=== PATIENT | female | born 1995 | race Caucasian/White ===

== ENCOUNTER 2016-07-30 14:16 | Emergency (ER) | payer OTHER ==
[~2016-07-30 14:16] MED LIST: ACET50TA PO; DIBU1OIN TOP; FERR325T3 PO; IBUP80TA PO; PRENTAB55 PO
[2016-07-30 18:30] LABS: MEAN CORPUSCULAR HEMOGLOBIN 29.4 pg (27.0-33.0); MEAN CORPUSCULAR HGB CONC 34.8 g/dl (32.0-36.5); MEAN CORPUSCULAR VOLUME 84.7 fl (80.0-96.0); RED CELL DISTRIBUTION WIDTH 12.6 % (11.5-14.5); WHITE BLOOD COUNT 9.4 K/mm3 (4.0-10.0)
--- NOTE | 2016-07-30 20:30 | EDDOCDS ---
Nurse's Notes [facility] Name: Mellissa Zavala Age: 20 yrs Sex: Female : 1995 Arrival Date: 07/30/2016 Time: 14:16 Bed I1 / M1 Private MD: EVELIN Su Diagnosis: Threatened ;Acute vaginitis-BACTERIAL VAGINOSIS Presentation: 07/30 14:35 Presenting complaint: Patient states: she has had vaginal bleeding and cramps since kcs 0800 - thinks she is about 4 weeks . Risk factors: The patient reports no loss of conciousness prior to arrival. This patient has not had a hysterectomy. This patient has not begun menopause. Adult Sepsis Screening: The patient does not have new or worsening altered mentation. Patient's respiratory rate is less than 22. Systolic blood pressure is greater than 100. Patient has a qSOFA score of 0- Negative Sepsis Screen. Suicide/Homicide risk assessment- the patient denies having any suicidal and/or homicidal ideations and does not present with any other emotional, behavioral or mental health complaints. Status: The patient is a dependent. Transition of care: patient was not received from another setting of care. 14:35 Acuity: ARON Level 3 kcs 14:35 Method Of Arrival: Walkin/Carried/Asstd [facility] Triage Assessment: 14:37 General: Appears comfortable, well developed, well nourished, well groomed, Behavior is kcs cooperative, pleasant. Pain: Location: low back and lower abdomen Pain currently is 7 out of 10 on a pain scale. Pt Declines HIV testing. Neurological: Level of Consciousness is awake, alert. Respiratory: Airway is patent Respiratory effort is even, unlabored, Respiratory pattern is regular, symmetrical. : Reports vaginal bleeding that is started brown and is now alittle more red. Derm: Skin is intact, is healthy with good turgor, Skin is dry, Skin is normal. 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 none - PMHx: none; - PSHx: none; - Social history: Smoking status: Patient states was never smoker of tobacco. No barriers to communication noted, The patient speaks fluent Welsh. - Family history: Not pertinent. - : The pt / caregiver states he / she is not on anticoagulants. Home medication list is obtained from the patient. - Exposure Risk Screening:: None identified. Screenin:11 Screening information is obtained from the patient. Fall risk: No risks identified. mk4 Assistance ADL's: requires no assistance with activities of daily living. Abuse/DV Screen: The patient / caregiver reports he/she is: not in a situation that causes fear, pain or injury. Nutritional screening: No deficits noted. Advance Directives: Currently, there is no health care proxy. There is no active DNR order. There is no living will. There is no Power of Laborer Driver. Advance directive information has not previously been placed in an [facility] medical record. Further advance directive information is declined. home support is adequate. Assessment: 16:45 General: At this time this pt called lab to come and draw labs on pt. . mb9 18:00 General: first contact with pt, [place] [facility] [place] and to my care at this time. mk4 19:14 General: Appears in no apparent distress, Behavior is appropriate for age, cooperative. dsf Pain: Denies pain. Neurological: Level of Consciousness is awake, alert, Oriented to person, place, time. Cardiovascular: Capillary refill < 3 seconds Heart tones S1 S2 present. Respiratory: Airway is patent Respiratory effort is even, unlabored, Respiratory pattern is regular, symmetrical, Breath sounds are clear bilaterally. GI: Abdomen is flat, Bowel sounds present X 4 quads. Abd is soft and non tender X 4 quads. : Vaginal discharge is tanya blood. Derm: Skin is pink, warm & dry. 20:28 Adult Sepsis Screening: The patient does not have new or worsening altered mentation. dsf Patient's respiratory rate is less than 22. Systolic blood pressure is greater than 100. Patient has a qSOFA score of 0- Negative Sepsis Screen. General: Appears in no apparent distress, Behavior is appropriate for age, cooperative. Pain: Denies pain. Neurological: Level of Consciousness is awake, alert. Cardiovascular: Capillary refill < 3 seconds. Respiratory: Airway is patent Respiratory effort is even, unlabored, Respiratory pattern is regular, symmetrical. Derm: Skin is pink, warm & dry. Vital Signs: 14:19 BP 143 / 82; Pulse 87; Resp 16; Temp 99.4(O); Pulse Ox 100% ; Weight 72.57 kg; Height 5 cmb ft. 5 in. (165.10 cm); Pain 7/10; 19:39 BP 151 / 83; Pulse 78; Resp 18; Temp 98.2; Pulse Ox 98% ; Pain 0/10; ajs 14:19 Body Mass Index 26.63 (72.57 kg, 165.10 cm) cmb Vitals: 14:19 Log In Time: July 30, 2016 at 14:15. cmb ED Course: 14:18 Patient visited by Lela Porras. cmb 14:18 Patient moved to Waiting cmb 14:19 Georges [facility] [place] is Private Physician. cmb 14:20 Patient moved to Pre RCE cmb 14:36 Triage Initiated kcs 15:18 Patient moved to Triage 1 ar3 15:22 [facility] ck7 15:23 Tessa Mead MD is Attending Physician. ck7 15:23 Patient visited by Jamshid Pierre RPA-C. ck7 15:51 Patient moved to PR1 / 25 mb9 15:56 Patient visited by Jamshid Pierre RPA-C. ck7 16:23 [facility] Payment Agreement was scanned into [employer] and attached to record. ks16 16:29 Patient visited by Jamshid Pierre RPA-C. ck7 16:32 Patient moved to Ultrasound br3 17:03 Patient moved to PR1 / 25 br3 17:30 Patient visited by Jamshid Pierre RPA-C. ck7 18:04 Patient moved to I1 / M1 mb9 18:11 The patient / caregiver is instructed regarding the plan of care and ED course. mk4 18:14 Patient visited by Jamshid Pierre RPA-C. ck7 18:47 Patient visited by Jamshid Pierre RPA-C. ck7 19:14 Wet Prep Sent. dsf 19:14 GC & Chlamydia Amplification Sent. dsf 19:15 Assist provider with pelvic exam: Set up pelvic tray. Specimens sent to lab. Performed dsf by Jamshid GONZALES Patient tolerated well. 19:24 Patient visited by Jamshid Pierre RPA-C. ck7 19:39 Patient visited by Ora Baig. ajs 20:22 Patient visited by Jamshid Pierre RPA-C. ck7 20:22 Amber Lizama MD is Referral Physician. ck7 20:28 No IV's were initiated during this patient's visit. dsf Administered Medications: 18:46 Not Given (no iv): NS 0.9% 1000 ml IV at bolus once mk4 Order Results: Lab Order: Type & Screen; [facility]07/30/16 18:02 Test: BLOOD TYPE; Value: O POS; Status: F Test: AB SCREEN (INDIRECT CARLITA)GEL; Value: NEGATIVE; Status: F Lab Order: Hcg, Serum Quantitative; [facility]07/30/16 18:02 Test: HCG, SERUM QUANTITATIVE; Value: 5; Units: MIU/ML; Status: F Test Note: ; GESTATIONAL AGE APPROXIMATE HCG RANGE (MIU/ML) 0.2-1 WEEK 5-50 1-2 WEEKS 50-500 2-3 WEEKS 100-5,000 3-4 WEEKS 500-10,000 4-5 WEEKS 1,000-50,000 5-6 WEEKS 10,000-100,000 6-8 WEEKS 15,000-200,000 2-3 MONTHS 10,000-100,000 NON FEMALES LESS THAN 3.0 Patient samples may contain human heterophilic antibodies that could react with immunoassays to give falsely elevated or depressed results. This assay has been designed to minimize interference from heterophilic antibodies. Elevated hCG levels have also been associated with trophoblastic disease and nontrophoblastic neoplasms. The possibility of having these diseases should be considered before a diagnosis of is made. This test is not intended for use as a surrogate marker for aiding in the diagnosis or monitoring the treatment of cancer patients. Siemens SQMOS methodology. Lab Order: CBC; [facility]07/30/16 18:02 Test: WHITE BLOOD COUNT; Value: 9.4; Range: 4.0-10.0; Units: K/mm3; Status: F Test: RED BLOOD COUNT; Value: 4.54; Range: 4.00-5.40; Units: M/mm3; Status: F Test: HEMOGLOBIN; Value: 13.4; Range: 12.0-16.0; Units: g/dl; Status: F Test: HEMATOCRIT; Value: 38.4; Range: 36.0-47.0; Units: %; Status: F Test: MEAN CORPUSCULAR VOLUME; Value: 84.7; Range: 80.0-96.0; Units: fl; Status: F Test: MEAN CORPUSCULAR HEMOGLOBIN; Value: 29.4; Range: 27.0-33.0; Units: pg; Status: F Test: MEAN CORPUSCULAR HGB CONC; Value: 34.8; Range: 32.0-36.5; Units: g/dl; Status: F Test: RED CELL DISTRIBUTION WIDTH; Value: 12.6; Range: 11.5-14.5; Units: %; Status: F Test: PLATELET COUNT, AUTOMATED; Value: 256; Range: 150-450; Units: k/mm3; Status: F Lab Order: UA; SPEC'M 07/30/16 17:21 Test: APPEARANCE, URINE; Value: CLEAR; Range: CLEAR; Status: F Test: COLOR, URINE; Value: YELLOW; Range: YELLOW; Status: F Test: PH,URINE; Value: 5.0; Range: 5.0-9.0; Units: UNITS; Status: F Test: SPECIFIC GRAVITY URINE AUTO; Value: 1.013; Range: 1.002-1.035; Status: F Test: PROTEIN, URINE AUTO; Value: NEGATIVE; Range: NEGATIVE; Units: mg/dL; Status: F Test: GLUCOSE, URINE (UA) AUTO; Value: NEGATIVE; Range: NEGATIVE; Units: mg/dL; Status: F Test: KETONE, URINE AUTO; Value: NEGATIVE; Range: NEGATIVE; Units: mg/dL; Status: F Test: UROBILINOGEN, URINE AUTO; Value: 0.2; Range: 0.0-2.0; Units: mg/dL; Status: F Test: BILIRUBIN, URINE AUTO; Value: NEGATIVE; Range: NEGATIVE; Status: F Test: NITRITE, URINE AUTO; Value: NEGATIVE; Range: NEGATIVE; Status: F Test: LEUKOCYTE ESTERASE, URINE AUTO; Value: NEGATIVE; Range: NEGATIVE; Status: F Test: BLOOD, URINE BLOOD; Value: 3+; Range: NEGATIVE; Abnormal: Above high normal; Status: F Test: WBC, URINE AUTO; Value: 7; Range: 0-3; Abnormal: Above high normal; Units: /HPF; Status: F Test: RBC, URINE AUTO; Value: 60; Range: 0-3; Abnormal: Above high normal; Units: /HPF; Status: F Test: BACTERIA, URINE AUTO; Value: NEGATIVE; Range: NEGATIVE; Status: F Test: SQUAMOUS EPITHELIAL CELL UR AU; Value: 2; Range: 0-6; Units: /HPF; Status: F Test: MUCUS, URINE; Value: SMALL; Range: NEGATIVE; Status: F Test: HYALINE CAST, URINE AUTO; Value: 0; Range: 0-1; Units: /LPF; Status: F Lab Order: Wet Prep; SPEC'[facility] 07/30/16 19:13 Test: WET PREP; Value: WET PREP RESULT; Status: F Test: WET PREP; Value: MANY RBC; Status: F Test: WET PREP; Value: FEW WBC; Status: F Test: WET PREP; Value: FEW EPITHELIAL CELLS PRESENT; Status: F Test: WET PREP; Value: FEW CLUE CELLS PRESENT; Status: F Test: WET PREP; Value: MODERATE SHORT RODS PRESENT; Status: F Test: WET PREP; Value: FEW LONG RODS PRESENT; Status: F Outcome: 20:24 Discharge ordered by Provider. ck7 20:28 Discharge Assessment: Patient awake, alert and oriented x 3. No cognitive and/or dsf functional deficits noted. Patient verbalized understanding of disposition instructions. patient administered narcotics - no. The following High Risk Discharge criteria are identified: None. Discharged to home ambulatory, with significant other. Condition: stable. Discharge instructions given to patient, Instructed on discharge instructions, follow up and referral plans. medication usage, Demonstrated understanding of instructions, medications, Pt was receptive of discharge instructions/ teaching. Prescriptions given X 1. Ultrasound Study completed. Property sent home with patient. 20:29 Patient left the ED. dsf Signatures: Natalie Bernardo, RN RN Sharee Theodore br3 Renetta Wright, FOOD PROCESSING SCIENTIST FOOD PROCESSING SCIENTIST ar3 Lisa De Luna RN RN dsf Ora Baig [place] cmb Jamshid Pierre, RPA-C RPA-Cck7 Geovanna Price RN RN mk4 Kal Foley RN RN mb9 Shanika Hernández, Reg Reg ks16 Corrections: (The following items were deleted from the chart) 18:11 18:06 General: at this time this rn called lab again to come and draw pt. . mb9 mk4 MTDD
--- NOTE | 2016-07-30 20:30 | EDDOCDS ---
Physician Documentation [facility] Name: Mellissa Zavala Age: 20 yrs Sex: Female : 1995 Arrival Date: 07/30/2016 Time: 14:16 Bed I1 / M1 Private MD: Georges [facility] [place]position: 07/30/16 20:24 Discharged to Home/Self Care. Impression: Threatened , Acute vaginitis - BACTERIAL VAGINOSIS. - Condition is Stable. - Discharge Instructions: Threatened Miscarriage, Bacterial Vaginosis, Giyd-of-Ijkt, Pelvic Rest. - Prescriptions for Metronidazole 0.75 % Vaginal Gel - insert 37.5 milligram by VAGINAL route once daily As needed in the morning and evening; 1 tube. STAT QUANT HCG ON 08/01/15, RESULTS TO DR EL. - Medication Reconciliation, Local Pharmacy Hours form. - Follow up: Amber El MD; When: 2 - 3 days; Reason: Recheck today's complaints, Continuance of care. - Problem is new. - Symptoms have improved. - Notes: IF BLEEDING MORE THAN 1 PAD PER HOUR, OR SIGNIFICANTLY MORE PAINFUL, RETURN TO THE ER, OBTAIN LAB WORK ON 08/01/15 AT [facility], FOLLOW UP WITH DR EL AT [facility] Historical: - Allergies: Bactrim (Rash); - Home Meds: 1. none - PMHx: none; - PSHx: none; - Social history: Smoking status: Patient states was never smoker of tobacco. No barriers to communication noted, The patient speaks fluent Serbian. - Family history: Not pertinent. - : The pt / caregiver states he / she is not on anticoagulants. Home medication list is obtained from the patient. - Exposure Risk Screening:: None identified. SCIENTIFIC DIVER: 07/30 14:37 2, Full Term 1, Premature 0, 0, Living 0, LMP 06/28/2016 kcs Vital Signs: 14:19 BP 143 / 82; Pulse 87; Resp 16; Temp 99.4(O); Pulse Ox 100% ; Weight 72.57 kg / 159.99 cmb lbs; Height 5 ft. 5 in. (165.10 cm); Pain 7/10; 19:39 BP 151 / 83; Pulse 78; Resp 18; Temp 98.2; Pulse Ox 98% ; Pain 0/10; ajs 14:19 Body Mass Index 26.63 (72.57 kg, 165.10 cm) cmb MDM: 15:12 Type & Screen Ordered. EDMS 15:12 Hcg, Serum Quantitative Ordered. EDMS 15:12 CBC Ordered. EDMS 15:27 NS 0.9% 1000 ml IV at bolus once ordered. ck7 15:27 Set up pelvic ordered. ck7 15:29 UA Ordered. EDMS 15:29 Urine Culture Ordered. EDMS 15:29 GC & Chlamydia Amplification Ordered. EDMS 15:29 Wet Prep Ordered. EDMS 15:30 US 1st trimester Ordered. EDMS 16:22 Financial registration complete. ks16 16:23 [facility] Payment Agreement was scanned into [employer] and attached to record. ks16 17:03 TRANSVAGINAL US Ordered. EDMS 17:03 DUPLEX SCAN LIMITED (DOPPLER) Ordered. EDMS 18:28 UA Reviewed. ck7 18:47 Type & Screen Reviewed. ck7 18:47 Hcg, Serum Quantitative Reviewed. ck7 18:47 CBC Reviewed. ck7 18:54 Type & Screen Reviewed. ck7 19:53 Wet Prep Reviewed. ck7 Administered Medications: 18:46 Not Given (no iv): NS 0.9% 1000 ml IV at bolus once mk4 Signatures: Dispatcher [employer] EDNatalie Sims, RN Lisa Hill RN RN dsf Jamshid Pierre, RPA-C RPA-Cck7 Geovanna Price RN RN mk4 Shanika Hernández, Reg Reg ks16 The chart was reviewed and I authenticate all verbal orders and agree with the evaluation and treatment provided.Corrections: (The following items were deleted from the chart) 18:46 15:27 IV Saline Lock ordered. ck7 mk4 Attachments: 16:23 [facility] Payment Agreement ks16 MTDD
--- NOTE | 2016-07-30 21:15 | REP ---
FIRST TRIMESTER ULTRASOUND: Real-time sonographic evaluation of the gravid uterus is performed utilizing transabdominal and endovaginal technique. The uterus measures 7.7 x 4.2 x 5.1 cm. Endometrial echo complex measures 9 mm in thickness. There is no endometrial fluid collection or gestational sac present. The right ovary measures 2.1 x 1.9 x 1.7 cm and left ovary 3.5 x 1.8 x 3.5 cm. There is no torsion, RI of the right ovary 0.69 and left ovary 0.58. Complex cystic structure left ovary measures 1.6 x 1.2 x 1.7 cm and may represent a corpus luteum. There is mild free fluid. There is no other evidence of adnexal mass. IMPRESSION: Empty uterus. Small complex cystic structure left ovary. No adnexal mass or torsion. Mild free fluid. Findings may represent very early intrauterine , missed AB or ectopic . Suggest followup measurement of quantitative beta hCG values. Followup ultrasound may be obtained as necessary. Signed by Edmar Velasco MD 07/31/2016 05:18 P
--- NOTE | 2016-08-01 21:30 | EDDOCDS ---
Physician Documentation [facility] Name: Mellissa Zavala Age: 20 yrs Sex: Female : 1995 Arrival Date: 07/30/2016 Time: 14:16 Bed I1 / M1 Private MD: [place] [facility] [place]: 07/30/16 20:24 Discharged to Home/Self Care. Impression: Threatened , Acute vaginitis - BACTERIAL VAGINOSIS. - Condition is Stable. - Discharge Instructions: Threatened Miscarriage, Bacterial Vaginosis, [id number], Pelvic Rest. - Prescriptions for Metronidazole 0.75 % Vaginal Gel - insert 37.5 milligram by VAGINAL route once daily As needed in the morning and evening; 1 tube. STAT QUANT HCG ON 08/01/15, RESULTS TO DR EL. - Medication Reconciliation, Local Pharmacy Hours form. - Follow up: Amber El MD; When: 2 - 3 days; Reason: Recheck today's complaints, Continuance of care. - Problem is new. - Symptoms have improved. - Notes: IF BLEEDING MORE THAN 1 PAD PER HOUR, OR SIGNIFICANTLY MORE PAINFUL, RETURN TO THE ER, OBTAIN LAB WORK ON 08/01/15 AT [facility], FOLLOW UP WITH DR EL AT [place] [facility] Historical: - Allergies: Bactrim (Rash); - Home Meds: 1. none - PMHx: none; - PSHx: none; - Social history: Smoking status: Patient states was never smoker of tobacco. No barriers to communication noted, The patient speaks fluent Estonian. - Family history: Not pertinent. - : The pt / caregiver states he / she is not on anticoagulants. Home medication list is obtained from the patient. - Exposure Risk Screening:: None identified. ON CALL PHARMACY TECHNICIAN: 07/30 14:37 2, Full Term 1, Premature 0, 0, Living 0, LMP 06/28/2016 kcs Vital Signs: 14:19 BP 143 / 82; Pulse 87; Resp 16; Temp 99.4(O); Pulse Ox 100% ; Weight 72.57 kg / 159.99 cmb lbs; Height 5 ft. 5 in. (165.10 cm); Pain 7/10; 19:39 BP 151 / 83; Pulse 78; Resp 18; Temp 98.2; Pulse Ox 98% ; Pain 0/10; ajs 14:19 Body Mass Index 26.63 (72.57 kg, 165.10 cm) cmb MDM: 15:12 Type & Screen Ordered. EDMS 15:12 Hcg, Serum Quantitative Ordered. EDMS 15:12 CBC Ordered. EDMS 15:27 NS 0.9% 1000 ml IV at bolus once ordered. ck7 15:27 Set up pelvic ordered. ck7 15:29 UA Ordered. EDMS 15:29 Urine Culture Ordered. EDMS 15:29 GC & Chlamydia Amplification Ordered. EDMS 15:29 Wet Prep Ordered. EDMS 15:30 US 1st trimester Ordered. EDMS 16:22 Financial registration complete. [email or web address] 16:23 [facility] Payment Agreement was scanned into [employer] and attached to record. [email or web address] 17:03 TRANSVAGINAL US Ordered. EDMS 17:03 DUPLEX SCAN LIMITED (DOPPLER) Ordered. EDMS 18:28 UA Reviewed. ck7 18:47 Type & Screen Reviewed. ck7 18:47 Hcg, Serum Quantitative Reviewed. ck7 18:47 CBC Reviewed. ck7 18:54 Type & Screen Reviewed. ck7 19:53 Wet Prep Reviewed. ck7 07/31 10:28 T-Sheet-- Draft Copy was scanned into [employer] and attached to record. gb Administered Medications: 07/30 18:46 Not Given (no iv): NS 0.9% 1000 ml IV at bolus once mk4 Signatures: Dispatcher [employer] Natalie Burt, Belinda Jj RN, Reg Reg gb Lisa De Luna RN RN dsJamshid Sanchez RPA-C RPA-Cck7 Geovanna Price RN RN mk4 Shanika Hernández, Reg Reg ks16 The chart was reviewed and I authenticate all verbal orders and agree with the evaluation and treatment provided.Corrections: (The following items were deleted from the chart) 18:46 15:27 IV Saline Lock ordered. ck7 mk4 Attachments: 16:23 [facility] Payment Agreement [email or web address] 07/31 10:28 T-Sheet-- Draft Copy gb Chart Complete MTDD
--- NOTE | 2016-08-01 21:30 | EDDOCDS ---
Physician Documentation [facility] Name: Mellissa Zavala Age: 20 yrs Sex: Female : 1995 Arrival Date: 07/30/2016 Time: 14:16 Bed I1 / M1 Private MD: Georges [facility] [place] Disposition: 07/30/16 20:24 Discharged to Home/Self Care. Impression: Threatened , Acute vaginitis - BACTERIAL VAGINOSIS. - Condition is Stable. - Discharge Instructions: Threatened Miscarriage, Bacterial Vaginosis, [id number], Pelvic Rest. - Prescriptions for Metronidazole 0.75 % Vaginal Gel - insert 37.5 milligram by VAGINAL route once daily As needed in the morning and evening; 1 tube. STAT QUANT HCG ON 08/01/15, RESULTS TO DR EL. - Medication Reconciliation, Local Pharmacy Hours form. - Follow up: Amber El MD; When: 2 - 3 days; Reason: Recheck today's complaints, Continuance of care. - Problem is new. - Symptoms have improved. - Notes: IF BLEEDING MORE THAN 1 PAD PER HOUR, OR SIGNIFICANTLY MORE PAINFUL, RETURN TO THE ER, OBTAIN LAB WORK ON 08/01/15 AT [facility], FOLLOW UP WITH DR EL AT [place] [facility] Historical: - Allergies: Bactrim (Rash); - Home Meds: 1. none - PMHx: none; - PSHx: none; - Social history: Smoking status: Patient states was never smoker of tobacco. No barriers to communication noted, The patient speaks fluent Kyrgyz. - Family history: Not pertinent. - : The pt / caregiver states he / she is not on anticoagulants. Home medication list is obtained from the patient. - Exposure Risk Screening:: None identified. 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 5 in. (165.10 cm); Pain 7/10; 19:39 BP 151 / 83; Pulse 78; Resp 18; Temp 98.2; Pulse Ox 98% ; Pain 0/10; ajs 14:19 Body Mass Index 26.63 (72.57 kg, 165.10 cm) cmb MDM: 15:12 Type & Screen Ordered. EDMS 15:12 Hcg, Serum Quantitative Ordered. EDMS 15:12 CBC Ordered. EDMS 15:27 NS 0.9% 1000 ml IV at bolus once ordered. ck7 15:27 Set up pelvic ordered. ck7 15:29 UA Ordered. EDMS 15:29 Urine Culture Ordered. EDMS 15:29 GC & Chlamydia Amplification Ordered. EDMS 15:29 Wet Prep Ordered. EDMS 15:30 US 1st trimester Ordered. EDMS 16:22 Financial registration complete. [email or web address] 16:23 [facility] Payment Agreement was scanned into [employer] and attached to record. [email or web address] 17:03 TRANSVAGINAL US Ordered. EDMS 17:03 DUPLEX SCAN LIMITED (DOPPLER) Ordered. EDMS 18:28 UA Reviewed. ck7 18:47 Type & Screen Reviewed. ck7 18:47 Hcg, Serum Quantitative Reviewed. ck7 18:47 CBC Reviewed. ck7 18:54 Type & Screen Reviewed. ck7 19:53 Wet Prep Reviewed. ck7 07/31 10:28 T-Sheet-- Draft Copy was scanned into [employer] and attached to record. gb Administered Medications: 07/30 18:46 Not Given (no iv): NS 0.9% 1000 ml IV at bolus once mk4 Signatures: Dispatcher [employer] Natalie Burt, Belinda Jj RN, Reg Reg gb Lisa De Luna RN RN dsJamshid Sanchez RPA-C RPA-Cck7 Geovanna Price RN RN mk4 Shanika Hernández, Reg Reg ks16 The chart was reviewed and I authenticate all verbal orders and agree with the evaluation and treatment provided.Corrections: (The following items were deleted from the chart) 18:46 15:27 IV Saline Lock ordered. ck7 mk4 Attachments: 16:23 [facility] Payment Agreement [email or web address] 07/31 10:28 T-Sheet-- Draft Copy gb Chart Complete MTDD
--- NOTE | 2016-08-01 21:30 | EDDOCDS ---
Nurse's Notes [facility] Name: Mellissa Zavala Age: 20 yrs Sex: Female : 1995 Arrival Date: 07/30/2016 Time: 14:16 Bed I1 / M1 Private MD: EVELIN Su Diagnosis: Threatened ;Acute vaginitis-BACTERIAL VAGINOSIS Presentation: 07/30 14:35 Presenting complaint: Patient states: she has had vaginal bleeding and cramps since kcs 0800 - thinks she is about 4 weeks . Risk factors: The patient reports no loss of conciousness prior to arrival. This patient has not had a hysterectomy. This patient has not begun menopause. Adult Sepsis Screening: The patient does not have new or worsening altered mentation. Patient's respiratory rate is less than 22. Systolic blood pressure is greater than 100. Patient has a qSOFA score of 0- Negative Sepsis Screen. Suicide/Homicide risk assessment- the patient denies having any suicidal and/or homicidal ideations and does not present with any other emotional, behavioral or mental health complaints. Status: The patient is a dependent. Transition of care: patient was not received from another setting of care. 14:35 Acuity: ARON Level 3 kcs 14:35 Method Of Arrival: [place] [facility] [place] Assessment: 14:37 General: Appears comfortable, well developed, well nourished, well groomed, Behavior is kcs cooperative, pleasant. Pain: Location: low back and lower abdomen Pain currently is 7 out of 10 on a pain scale. Pt Declines HIV testing. Neurological: Level of Consciousness is awake, alert. Respiratory: Airway is patent Respiratory effort is even, unlabored, Respiratory pattern is regular, symmetrical. : Reports vaginal bleeding that is started brown and is now alittle more red. Derm: Skin is intact, is healthy with good turgor, Skin is dry, Skin is normal. 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 none - PMHx: none; - PSHx: none; - Social history: Smoking status: Patient states was never smoker of tobacco. No barriers to communication noted, The patient speaks fluent Estonian. - Family history: Not pertinent. - : The pt / caregiver states he / she is not on anticoagulants. Home medication list is obtained from the patient. - Exposure Risk Screening:: None identified. Screenin:11 Screening information is obtained from the patient. Fall risk: No risks identified. mk4 Assistance ADL's: requires no assistance with activities of daily living. Abuse/DV Screen: The patient / caregiver reports he/she is: not in a situation that causes fear, pain or injury. Nutritional screening: No deficits noted. Advance Directives: Currently, there is no health care proxy. There is no active DNR order. There is no living will. There is no Power of Agronomy Advisor. Advance directive information has not previously been placed in an [facility] medical record. Further advance directive information is declined. home support is adequate. Assessment: 16:45 General: At this time this pt called lab to come and draw labs on pt. . mb9 18:00 General: first contact with pt, pt transferred to [facility] and to my care at this time. mk4 19:14 General: Appears in no apparent distress, Behavior is appropriate for age, cooperative. dsf Pain: Denies pain. Neurological: Level of Consciousness is awake, alert, Oriented to person, place, time. Cardiovascular: Capillary refill < 3 seconds Heart tones S1 S2 present. Respiratory: Airway is patent Respiratory effort is even, unlabored, Respiratory pattern is regular, symmetrical, Breath sounds are clear bilaterally. GI: Abdomen is flat, Bowel sounds present X 4 quads. Abd is soft and non tender X 4 quads. : Vaginal discharge is tanya blood. Derm: Skin is pink, warm & dry. 20:28 Adult Sepsis Screening: The patient does not have new or worsening altered mentation. dsf Patient's respiratory rate is less than 22. Systolic blood pressure is greater than 100. Patient has a qSOFA score of 0- Negative Sepsis Screen. General: Appears in no apparent distress, Behavior is appropriate for age, cooperative. Pain: Denies pain. Neurological: Level of Consciousness is awake, alert. Cardiovascular: Capillary refill < 3 seconds. Respiratory: Airway is patent Respiratory effort is even, unlabored, Respiratory pattern is regular, symmetrical. Derm: Skin is pink, warm & dry. Vital Signs: 14:19 BP 143 / 82; Pulse 87; Resp 16; Temp 99.4(O); Pulse Ox 100% ; Weight 72.57 kg; Height 5 cmb ft. 5 in. (165.10 cm); Pain 7/10; 19:39 BP 151 / 83; Pulse 78; Resp 18; Temp 98.2; Pulse Ox 98% ; Pain 0/10; ajs 14:19 Body Mass Index 26.63 (72.57 kg, 165.10 cm) cmb Vitals: 14:19 Log In Time: July 30, 2016 at 14:15. cmb ED Course: 14:18 Patient visited by Lela Porras. cmb 14:18 Patient moved to Waiting cmb 14:19 Georges [facility] is Private Physician. cmb 14:20 Patient moved to Pre RCE cmb 14:36 Triage Initiated kcs 15:18 Patient moved to Triage 1 ar3 15:22 [facility] ck7 15:23 Tessa Mead MD is Attending Physician. ck7 15:23 Patient visited by Jamshid Pierre RPA-C. ck7 15:51 Patient moved to PR1 / 25 mb9 15:56 Patient visited by Jamshid Pierre RPA-C. ck7 16:23 [facility] Payment Agreement was scanned into [employer] and attached to record. ks16 16:29 Patient visited by Jamshid Pierre RPA-C. ck7 16:32 Patient moved to Ultrasound br3 17:03 Patient moved to PR1 / 25 br3 17:30 Patient visited by Jamshid Pierre RPA-C. ck7 18:04 Patient moved to I1 / M1 mb9 18:11 The patient / caregiver is instructed regarding the plan of care and ED course. mk4 18:14 Patient visited by Jamshid Pierre RPA-C. ck7 18:47 Patient visited by Jamshid Pierre RPA-C. ck7 19:14 Wet Prep Sent. dsf 19:14 GC & Chlamydia Amplification Sent. dsf 19:15 Assist provider with pelvic exam: Set up pelvic tray. Specimens sent to lab. Performed dsf by Jamshid GONZALES Patient tolerated well. 19:24 Patient visited by Jamshid Pierre RPA-C. ck7 19:39 Patient visited by Ora Baig. ajs 20:22 Patient visited by Jamshid Pierre RPA-C. ck7 20:22 Amber Lizama MD is Referral Physician. ck7 20:28 No IV's were initiated during this patient's visit. dsf 21:33 US 1st trimester Returned. EDMS 21:33 TRANSVAGINAL US Returned. EDMS 21:33 DUPLEX SCAN LIMITED (DOPPLER) Returned. EDMS 07/31 10:28 T-Sheet-- Draft Copy was scanned into [employer] and attached to record. gb Administered Medications: 07/30 18:46 Not Given (no iv): NS 0.9% 1000 ml IV at bolus once mk4 Order Results: Lab Order: Type & Screen; [facility] 07/30/16 18:02 Test: BLOOD TYPE; Value: O POS; Status: F Test: AB SCREEN (INDIRECT CARLITA)GEL; Value: NEGATIVE; Status: F Lab Order: Hcg, Serum Quantitative; [facility] 07/30/16 18:02 Test: HCG, SERUM QUANTITATIVE; Value: 5; Units: MIU/ML; Status: F Test Note: ; GESTATIONAL AGE APPROXIMATE HCG RANGE (MIU/ML) 0.2-1 WEEK 5-50 1-2 WEEKS 50-500 2-3 WEEKS 100-5,000 3-4 WEEKS 500-10,000 4-5 WEEKS 1,000-50,000 5-6 WEEKS 10,000-100,000 6-8 WEEKS 15,000-200,000 2-3 MONTHS 10,000-100,000 NON FEMALES LESS THAN 3.0 Patient samples may contain human heterophilic antibodies that could react with immunoassays to give falsely elevated or depressed results. This assay has been designed to minimize interference from heterophilic antibodies. Elevated hCG levels have also been associated with trophoblastic disease and nontrophoblastic neoplasms. The possibility of having these diseases should be considered before a diagnosis of is made. This test is not intended for use as a surrogate marker for aiding in the diagnosis or monitoring the treatment of cancer patients. Siemens ReClaims methodology. Lab Order: CBC; [facility] 07/30/16 18:02 Test: WHITE BLOOD COUNT; Value: 9.4; Range: 4.0-10.0; Units: K/mm3; Status: F Test: RED BLOOD COUNT; Value: 4.54; Range: 4.00-5.40; Units: M/mm3; Status: F Test: HEMOGLOBIN; Value: 13.4; Range: 12.0-16.0; Units: g/dl; Status: F Test: HEMATOCRIT; Value: 38.4; Range: 36.0-47.0; Units: %; Status: F Test: MEAN CORPUSCULAR VOLUME; Value: 84.7; Range: 80.0-96.0; Units: fl; Status: F Test: MEAN CORPUSCULAR HEMOGLOBIN; Value: 29.4; Range: 27.0-33.0; Units: pg; Status: F Test: MEAN CORPUSCULAR HGB CONC; Value: 34.8; Range: 32.0-36.5; Units: g/dl; Status: F Test: RED CELL DISTRIBUTION WIDTH; Value: 12.6; Range: 11.5-14.5; Units: %; Status: F Test: PLATELET COUNT, AUTOMATED; Value: 256; Range: 150-450; Units: k/mm3; Status: F Lab Order: ; SPEC' 07/30/16 17:21 Test: APPEARANCE, URINE; Value: CLEAR; Range: CLEAR; Status: F Test: COLOR, URINE; Value: YELLOW; Range: YELLOW; Status: F Test: PH,URINE; Value: 5.0; Range: 5.0-9.0; Units: UNITS; Status: F Test: SPECIFIC GRAVITY URINE AUTO; Value: 1.013; Range: 1.002-1.035; Status: F Test: PROTEIN, URINE AUTO; Value: NEGATIVE; Range: NEGATIVE; Units: mg/dL; Status: F Test: GLUCOSE, URINE (UA) AUTO; Value: NEGATIVE; Range: NEGATIVE; Units: mg/dL; Status: F Test: KETONE, URINE AUTO; Value: NEGATIVE; Range: NEGATIVE; Units: mg/dL; Status: F Test: UROBILINOGEN, URINE AUTO; Value: 0.2; Range: 0.0-2.0; Units: mg/dL; Status: F Test: BILIRUBIN, URINE AUTO; Value: NEGATIVE; Range: NEGATIVE; Status: F Test: NITRITE, URINE AUTO; Value: NEGATIVE; Range: NEGATIVE; Status: F Test: LEUKOCYTE ESTERASE, URINE AUTO; Value: NEGATIVE; Range: NEGATIVE; Status: F Test: BLOOD, URINE BLOOD; Value: 3+; Range: NEGATIVE; Abnormal: Above high normal; Status: F Test: WBC, URINE AUTO; Value: 7; Range: 0-3; Abnormal: Above high normal; Units: /HPF; Status: F Test: RBC, URINE AUTO; Value: 60; Range: 0-3; Abnormal: Above high normal; Units: /HPF; Status: F Test: BACTERIA, URINE AUTO; Value: NEGATIVE; Range: NEGATIVE; Status: F Test: SQUAMOUS EPITHELIAL CELL UR AU; Value: 2; Range: 0-6; Units: /HPF; Status: F Test: MUCUS, URINE; Value: SMALL; Range: NEGATIVE; Status: F Test: HYALINE CAST, URINE AUTO; Value: 0; Range: 0-1; Units: /LPF; Status: F Lab Order: Urine Culture; SPEC'M 07/30/16 17:21 Test: URINE CULTURE; Value: URINE CULTURE RESULT NO GROWTH; Status: F Lab Order: GC & Chlamydia Amplification; SPEC'M 07/30/16 19:13 Test: CHLAMYDIA DNA AMPLIFICATION; Value: NEGATIVE; Range: NEGATIVE; Status: F Test: GC DNA AMPLIFICATION; Value: NEGATIVE; Range: NEGATIVE; Status: F Lab Order: Wet Prep; SPEC'M 07/30/16 19:13 Test: WET PREP; Value: WET PREP RESULT; Status: F Test: WET PREP; Value: MANY RBC; Status: F Test: WET PREP; Value: FEW WBC; Status: F Test: WET PREP; Value: FEW EPITHELIAL CELLS PRESENT; Status: F Test: WET PREP; Value: FEW CLUE CELLS PRESENT; Status: F Test: WET PREP; Value: MODERATE SHORT RODS PRESENT; Status: F Test: WET PREP; Value: FEW LONG RODS PRESENT; Status: F Radiology Order: US 1st trimester Test: US 1st trimester REASON FOR EXAMINATION: Bleeding; FIRST TRIMESTER ULTRASOUND:; ; Real-time sonographic evaluation of the gravid uterus is performed utilizing; transabdominal and endovaginal technique.; ; The uterus measures 7.7 x 4.2 x 5.1 cm. Endometrial echo complex measures 9 mm in; thickness. There is no endometrial fluid collection or gestational sac present.; The right ovary measures 2.1 x 1.9 x 1.7 cm and left ovary 3.5 x 1.8 x 3.5 cm.; There is no torsion, RI of the right ovary 0.69 and left ovary 0.58. Complex; cystic structure left ovary measures 1.6 x 1.2 x 1.7 cm and may represent a; corpus luteum. There is mild free fluid. There is no other evidence of adnexal; mass.; ; IMPRESSION:; ; Empty uterus. Small complex cystic structure left ovary. No adnexal mass or; torsion. Mild free fluid. Findings may represent very early intrauterine; , missed AB or ectopic . Suggest followup measurement of; quantitative beta hCG values. Followup ultrasound may be obtained as necessary.; ; ; Signed by; Edmar Velasco MD 07/31/2016 05:18 P; Radiology Order: TRANSVAGINAL US Test: TRANSVAGINAL US REASON FOR EXAMINATION: EVAL FOR IUP; FIRST TRIMESTER ULTRASOUND:; ; Real-time sonographic evaluation of the gravid uterus is performed utilizing; transabdominal and endovaginal technique.; ; The uterus measures 7.7 x 4.2 x 5.1 cm. Endometrial echo complex measures 9 mm in; thickness. There is no endometrial fluid collection or gestational sac present.; The right ovary measures 2.1 x 1.9 x 1.7 cm and left ovary 3.5 x 1.8 x 3.5 cm.; There is no torsion, RI of the right ovary 0.69 and left ovary 0.58. Complex; cystic structure left ovary measures 1.6 x 1.2 x 1.7 cm and may represent a; corpus luteum. There is mild free fluid. There is no other evidence of adnexal; mass.; ; IMPRESSION:; ; Empty uterus. Small complex cystic structure left ovary. No adnexal mass or; torsion. Mild free fluid. Findings may represent very early intrauterine; , missed AB or ectopic . Suggest followup measurement of; quantitative beta hCG values. Followup ultrasound may be obtained as necessary.; ; ; Signed by; Edmar Velasco MD 07/31/2016 05:18 P; Radiology Order: DUPLEX SCAN LIMITED (DOPPLER) Test: DUPLEX SCAN LIMITED (DOPPLER) REASON FOR EXAMINATION: RI OF OVARIES; FIRST TRIMESTER ULTRASOUND:; ; Real-time sonographic evaluation of the gravid uterus is performed utilizing; transabdominal and endovaginal technique.; ; The uterus measures 7.7 x 4.2 x 5.1 cm. Endometrial echo complex measures 9 mm in; thickness. There is no endometrial fluid collection or gestational sac present.; The right ovary measures 2.1 x 1.9 x 1.7 cm and left ovary 3.5 x 1.8 x 3.5 cm.; There is no torsion, RI of the right ovary 0.69 and left ovary 0.58. Complex; cystic structure left ovary measures 1.6 x 1.2 x 1.7 cm and may represent a; corpus luteum. There is mild free fluid. There is no other evidence of adnexal; mass.; ; IMPRESSION:; ; Empty uterus. Small complex cystic structure left ovary. No adnexal mass or; torsion. Mild free fluid. Findings may represent very early intrauterine; , missed AB or ectopic . Suggest followup measurement of; quantitative beta hCG values. Followup ultrasound may be obtained as necessary.; ; ; Signed by; Edmar Velasco MD 07/31/2016 05:18 P; Outcome: 20:24 Discharge ordered by Provider. ck7 20:28 Discharge Assessment: Patient awake, alert and oriented x 3. No cognitive and/or dsf functional deficits noted. Patient verbalized understanding of disposition instructions. patient administered narcotics - no. The following High Risk Discharge criteria are identified: None. Discharged to home ambulatory, with significant other. Condition: stable. Discharge instructions given to patient, Instructed on discharge instructions, follow up and referral plans. medication usage, Demonstrated understanding of instructions, medications, Pt was receptive of discharge instructions/ teaching. Prescriptions given X 1. Ultrasound Study completed. Property sent home with patient. 20:29 Patient left the ED. dsf Signatures: Dispatcher [employer] EDMS Natalie Bernardo, RN RN Belinda Espinal, Antonio Reg Sharee Stanton br3 Renetta Wright, WEIGHTS AND MEASURES SEALER WEIGHTS AND MEASURES SEALER ar3 Lisa De Luna RN RN dsf Ora Baig [place] cmb Jamshid Pierre, RPA-C RPA-Cck7 Geovanna Price RN RN mk4 Kal Foley RN RN mb9 Shanika Hernández, Reg Reg ks16 Corrections: (The following items were deleted from the chart) 18:11 18:06 General: at this time this rn called lab again to come and draw pt. . mb9 mk4 Chart Complete MTDD
== END 2016-07-30 20:29 | disposition home or self-care (01) ==
LOC: M ED 14:16
DX: O20.0 Threatened abortion (principal); O23.591 Infection of other part of genital tract in pregnancy, first trimester; Z3A.01 Less than 8 weeks gestation of pregnancy; Z88.2 Allergy status to sulfonamides

== ENCOUNTER 2016-07-31 21:00 | Emergency (ER) | payer OTHER ==
[2016-07-31 22:23] LABS: MEAN CORPUSCULAR HEMOGLOBIN 29.2 pg (27.0-33.0); MEAN CORPUSCULAR HGB CONC 34.2 g/dl (32.0-36.5); MEAN CORPUSCULAR VOLUME 85.3 fl (80.0-96.0); RED CELL DISTRIBUTION WIDTH 13.3 % (11.5-14.5); WHITE BLOOD COUNT 9.1 K/mm3 (4.0-10.0)
--- NOTE | 2016-08-01 00:57 | EDDOCDS ---
Nurse's Notes [facility] Name: Mellissa Zavala Age: 20 yrs Sex: Female : 1995 Arrival Date: 07/31/2016 Time: 21:00 Bed I1 / M1 Private MD: EVELIN Su Diagnosis: Spontaneous -Complete;Other ovarian cysts-Left Presentation: 07/31 21:05 Presenting complaint: Patient states: pt states she was seen here yesterday for vaginal ead bleeding, states she is 4 weeks . Was told by her doctor if began passing clots to return to ER. Risk factors: The patient reports no loss of conciousness prior to arrival. This patient has not had a hysterectomy. This patient has not begun menopause. Adult Sepsis Screening: The patient does not have new or worsening altered mentation. Patient's respiratory rate is less than 22. Systolic blood pressure is greater than 100. Patient has a qSOFA score of 0- Negative Sepsis Screen. Suicide/Homicide risk assessment- the patient denies having any suicidal and/or homicidal ideations and does not present with any other emotional, behavioral or mental health complaints. Status: The patient is a dependent. Transition of care: patient was not received from another setting of care. 21:05 Acuity: ARON Level 3 ead 21:05 Method Of Arrival: Walkin/Carried/Asstd ead Triage Assessment: 21:08 General: Appears in no apparent distress, Behavior is appropriate for age, cooperative. ead Pain: Location: back and abdomen Pain currently is 6 out of 10 on a pain scale. HIV screening NA for this visit Offered previously. Neurological: No deficits noted. Respiratory: Airway is patent Respiratory effort is even, unlabored. : Reports vaginal bleeding that is with clots heavy flow. Derm: Skin is pink, warm & dry. 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 metronidazole vaginal gel 0.75 % twice a day - PMHx: none; - PSHx: none; - Social history: Smoking status: Patient states was never smoker of tobacco. No barriers to communication noted, The patient speaks fluent Romansh, Speaks appropriately for age. - Family history: Not pertinent. - : The pt / caregiver states he / she is not on anticoagulants. Home medication list is obtained from the patient. - Exposure Risk Screening:: None identified. Screenin:12 Screening information is obtained from the patient. Screening information is obtained ka4 from the patient. Fall risk: No risks identified. Assistance ADL's: requires no assistance with activities of daily living. Abuse/DV Screen: The patient / caregiver reports he/she is: not in a situation that causes fear, pain or injury. Nutritional screening: No deficits noted. Advance Directives: There is no active DNR order. home support is adequate. Assessment: 22:11 General: Appears in no apparent distress, comfortable, well developed, well nourished, ka4 well groomed, Behavior is appropriate for age, cooperative, pleasant. Pain: Pain currently is 5 out of 10 on a pain scale. Neurological: Level of Consciousness is awake, alert, obeys commands, Oriented to person, place, time, Moves all extremities. Gait is steady, Speech is normal, Facial symmetry appears normal, Facial symmetry: tongue is midline. Respiratory: Airway is patent Respiratory effort is even, unlabored, Respiratory pattern is regular, symmetrical. GI: Abdomen is flat, non- distended. Derm: Skin is intact, is healthy with good turgor, Skin is pink, warm & dry. 22:40 General: Patient gone to US via wheelchair with tech.. kas2 23:00 General: Patient back from US via wheelchair. Resettled in bed. No apparent distress at [facility] this time. Call becerril within reach. Will continue to monitor.. 23:30 General: Viviana Jarquin PA in to do pelvic exam with tech in the room.. kas2 23:46 General:. kas2 08/01 00:15 General: Patient laying in bed with at bedside. Denies pain or discomfort at [facility] this time. No apparent distress noted. Appears comfortable. Call becerril within reach. Will continue to monitor.. Vital Signs: 07/31 21:02 BP 156 / 98; Pulse 83; Resp 16; Temp 98.3; Pulse Ox 99% ; Weight 72.57 kg; Height 5 ft. cmb 5 in. (165.10 cm); Pain /10; 08/01 00:47 BP 141 / 82; Pulse 67; Resp 18; Temp 99(O); Pulse Ox 96% on R/A; Pain 0/10; ka4 07/31 21:02 Body Mass Index 26.63 (72.57 kg, 165.10 cm) cmb Vitals: 07/31 21: Log In Time: July 31, 2016 at 21:00. cmb ED Course: 21:01 Patient visited by Lela Porras. cmb 21:01 Patient moved to Waiting cmb 21:02 Georges [facility] is Private Physician. cmb 21:03 Patient moved to Pre RCE cmb 21:07 Triage Initiated ead 21:45 Patient moved to Triage 1 ttb 21:47 [facility] ef1 21:47 Lamont Morgan DO is Attending Physician. ef1 21:53 Patient visited by Viviana Jarquin PA-C. ef1 21:57 Patient moved to I1 / M1 ead 22:07 Patient visited by Myriam Buenrostro RN. kas2 22:12 The patient / caregiver is instructed regarding the plan of care and ED course. ka4 22:12 Inserted saline lock: 20 gauge in left antecubital area and blood collected. The ka4 patient tolerated the procedure well. No procedures done that require assistance. 22:13 Patient visited by Fely Cox LPN. ka4 22:13 Complete Blood Count Sent. ka4 22:13 Hcg, Serum Quantitative Sent. ka4 22:34 Patient visited by Myriam Buenrostro RN. kas2 22:53 [facility] Payment Agreement was scanned into [employer] and attached to record. gjb 22:53 Patient moved to Ultrasound br3 23:06 Patient visited by Myriam Buenrostro RN. kas2 23:25 Patient moved to I1 / M1 br3 23:27 Patient visited by Viviana Jarquin PA-C. ef1 23:47 Patient visited by Myriam Buenrostro RN. kas2 08/01 00:21 Patient visited by Myriam Buenrostro RN. kas2 00:46 Patient visited by Viviana Jarquin PA-C. ef1 00:46 Chidi Barahona OB is Referral Physician. ef1 00:49 Discontinued IV bleeding controlled, pressure dressing applied, No redness/swelling at kas2 site. 00:50 Patient visited by Myriam Buenrostro RN. kas2 00:56 Patient visited by Fely Cox LPN. ka4 Administered Medications: 07/31 22:34 Drug: NS 0.9% 1000 ml [sodium chloride 0.9 % intravenous solution] Route: IV; Rate: kas2 bolus; Site: left antecubital; 08/01 00:51 Follow up: IV Intake: 1000ml kas2 Intake: 00:51 IV: 1000.00ml; Total: 1000.00ml. kas2 Order Results: Lab Order: Complete Blood Count; SPEC'M 07/31/16 22:06 Test: WHITE BLOOD COUNT; Value: 9.1; Range: 4.0-10.0; Units: K/mm3; Status: F Test: RED BLOOD COUNT; Value: 4.73; Range: 4.00-5.40; Units: M/mm3; Status: F Test: HEMOGLOBIN; Value: 13.8; Range: 12.0-16.0; Units: g/dl; Status: F Test: HEMATOCRIT; Value: 40.4; Range: 36.0-47.0; Units: %; Status: F Test: MEAN CORPUSCULAR VOLUME; Value: 85.3; Range: 80.0-96.0; Units: fl; Status: F Test: MEAN CORPUSCULAR HEMOGLOBIN; Value: 29.2; Range: 27.0-33.0; Units: pg; Status: F Test: MEAN CORPUSCULAR HGB CONC; Value: 34.2; Range: 32.0-36.5; Units: g/dl; Status: F Test: RED CELL DISTRIBUTION WIDTH; Value: 13.3; Range: 11.5-14.5; Units: %; Status: F Test: PLATELET COUNT, AUTOMATED; Value: 259; Range: 150-450; Units: k/mm3; Status: F Lab Order: Hcg, Serum Quantitative; SPEC'M 07/31/16 22:06 Test: HCG, SERUM QUANTITATIVE; Value: 3; Units: MIU/ML; Status: F Test Note: ; GESTATIONAL AGE APPROXIMATE HCG RANGE (MIU/ML) 0.2-1 WEEK 5-50 1-2 WEEKS 50-500 2-3 WEEKS 100-5,000 3-4 WEEKS 500-10,000 4-5 WEEKS 1,000-50,000 5-6 WEEKS 10,000-100,000 6-8 WEEKS 15,000-200,000 2-3 MONTHS 10,000-100,000 NON FEMALES LESS THAN 3.0 Patient samples may contain human heterophilic antibodies that could react with immunoassays to give falsely elevated or depressed results. This assay has been designed to minimize interference from heterophilic antibodies. Elevated hCG levels have also been associated with trophoblastic disease and nontrophoblastic neoplasms. The possibility of having these diseases should be considered before a diagnosis of is made. This test is not intended for use as a surrogate marker for aiding in the diagnosis or monitoring the treatment of cancer patients. [employer] methodology. Outcome: 07/31 22:12 Property :Personal belongings accompany Pt. ka4 08/01 00:46 Discharge ordered by Provider. ef1 00:48 Discharge Assessment: Patient awake, alert and oriented x 3. No cognitive and/or ka4 functional deficits noted. Patient verbalized understanding of disposition instructions. patient administered narcotics - no. The following High Risk Discharge criteria are identified: None. Discharged to home ambulatory. Condition: good Condition: stable. Ultrasound Study completed. 00:55 Discharge instructions given to patient, significant other, Instructed on discharge ka4 instructions, follow up and referral plans. Demonstrated understanding of instructions, Pt was receptive of discharge instructions/ teaching. 00:56 Patient left the ED. ka4 Signatures: Viviana Jarquin PA-C PAEvansC ef1 Sharee Martin br3 Lela Porras Teresa, RN RN ttb Dunaway, Emily, RN RN ead Anderson, Kodie, LPN LPN ka4 Jeanine Hammond Kim, RN RN kas2 JAYANTD
--- NOTE | 2016-08-01 00:57 | EDDOCDS ---
Physician Documentation [facility] Name: Mellissa Zavala Age: 20 yrs Sex: Female : 1995 Arrival Date: 07/31/2016 Time: 21:00 Bed I1 / M1 Private MD: [place]es [facility] [place]position: 08/01/16 00:46 Discharged to Home/Self Care. Impression: Spontaneous - Complete, Other ovarian cysts - Left. - Condition is Stable. - Discharge Instructions: Ovarian Cyst, Cetf-[id number], Miscarriage, Uebp-[id number]. - Medication Reconciliation, Local Pharmacy Hours form. - Follow up: [facility] [place]; When: 1 - 2 days; Reason: Further diagnostic work-up, Recheck today's complaints, Continuance of care. Follow up: Emergency Department; Reason: Worsening of conditions. - Problem is new. - Symptoms have improved. Historical: - Allergies: Bactrim (Rash); - Home Meds: 1. metronidazole vaginal gel 0.75 % twice a day - PMHx: none; - PSHx: none; - Social history: Smoking status: Patient states was never smoker of tobacco. No barriers to communication noted, The patient speaks fluent Lithuanian, Speaks appropriately for age. - Family history: Not pertinent. - : The pt / caregiver states he / she is not on anticoagulants. Home medication list is obtained from the patient. - Exposure Risk Screening:: None identified. 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 5 in. (165.10 cm); Pain 5/10; 08/01 00:47 BP 141 / 82; Pulse 67; Resp 18; Temp 99(O); Pulse Ox 96% on R/A; Pain 0/10; ka4 07/31 21:02 Body Mass Index 26.63 (72.57 kg, 165.10 cm) cmb MDM: 07/31 21:56 IV Saline Lock ordered. ef1 21:56 Undress patient appropriately for examination ordered. ef1 21:57 Complete Blood Count Ordered. EDMS 21:57 Hcg, Serum Quantitative Ordered. EDMS 22:00 NS 0.9% 1000 ml IV at bolus once ordered. ef1 22:30 Financial registration complete. gjb 22:53 [facility] Payment Agreement was scanned into [employer] and attached to record. gjb 22:53 US PELVIC NON-OB COMPLETE Ordered. EDMS 22:54 Transvaginal NON- US Ordered. EDMS 22:54 DUPLEX SCAN LIMITED (DOPPLER) Ordered. EDMS 23:06 Complete Blood Count Reviewed. ef1 23:06 Hcg, Serum Quantitative Reviewed. ef1 23:31 Set up pelvic ordered. ef1 Administered Medications: 22:34 Drug: NS 0.9% 1000 ml [sodium chloride 0.9 % intravenous solution] Route: IV; Rate: kas2 bolus; Site: left antecubital; 08/01 00:51 Follow up: IV Intake: 1000ml kas2 Signatures: Dispatcher [employer] EDMS Viviana Jarquin, CHIDI MURILLO ef1 Ning WrightRN RN Fely Rodrigues LPN LPN kaJeanine Aponte Kim RN kas2 The chart was reviewed and I authenticate all verbal orders and agree with the evaluation and treatment provided.Corrections: (The following items were deleted from the chart) 07/31 22:53 21:57 1ST TRIMESTER US+US ordered. EDMS EDMS Attachments: 22:53 [facility] Payment Agreement gjb MTDD
--- NOTE | 2016-08-01 01:30 | REPUSA ---
CLINICAL HISTORY: Pelvic pain. TECHNIQUE: Realtime sonographic images were obtained in multiple projections via TA approach. COMMENTS: The uterus is anteverted measuring 7.4x4.3x5.5 cm. The endometrial echo pattern is within normal limits measuring 5.2 mm. There is small amount of free fluid within the pelvic cul-de-sac. The right ovary measures 1.7x1.4x1.4 cm and the left ovary measures 3.4x1.9x3.2 cm with a 1.1x0.9x1.1 cm resolving cyst . Both ovaries are free of solid or cystic mass. There is no evidence for abnormal vascularity. IMPRESSION: No intrauterine . Normal endometrium. Thank you for your kind referral of this patient.
--- NOTE | 2016-08-03 01:56 | EDDOCDS ---
Physician Documentation [facility] Name: Mellissa Zavala Age: 20 yrs Sex: Female : 1995 Arrival Date: 07/31/2016 Time: 21:00 Bed I1 / M1 Private MD: Georges [facility] [place]position: 08/01/16 00:46 Discharged to Home/Self Care. Impression: Spontaneous - Complete, Other ovarian cysts - Left. - Condition is Stable. - Discharge Instructions: Ovarian Cyst, [id number], Miscarriage, [id number]. - Medication Reconciliation, Local Pharmacy Hours form. - Follow up: [facility]; When: 1 - 2 days; Reason: Further diagnostic work-up, Recheck today's complaints, Continuance of care. Follow up: Emergency Department; Reason: Worsening of conditions. - Problem is new. - Symptoms have improved. Historical: - Allergies: Bactrim (Rash); - Home Meds: 1. metronidazole vaginal gel 0.75 % twice a day - PMHx: none; - PSHx: none; - Social history: Smoking status: Patient states was never smoker of tobacco. No barriers to communication noted, The patient speaks fluent Micronesian, Speaks appropriately for age. - Family history: Not pertinent. - : The pt / caregiver states he / she is not on anticoagulants. Home medication list is obtained from the patient. - Exposure Risk Screening:: None identified. 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 5 in. (165.10 cm); Pain 5/10; 08/01 00:47 BP 141 / 82; Pulse 67; Resp 18; Temp 99(O); Pulse Ox 96% on R/A; Pain 0/10; ka4 07/31 21:02 Body Mass Index 26.63 (72.57 kg, 165.10 cm) cmb MDM: 07/31 21:56 IV Saline Lock ordered. ef1 21:56 Undress patient appropriately for examination ordered. ef1 21:57 Complete Blood Count Ordered. EDMS 21:57 Hcg, Serum Quantitative Ordered. EDMS 22:00 NS 0.9% 1000 ml IV at bolus once ordered. ef1 22:30 Financial registration complete. gjb 22:53 [facility] Payment Agreement was scanned into [email or web address] ([email or web address]) and attached to record. gjb 22:53 US PELVIC NON-OB COMPLETE Ordered. EDMS 22:54 Transvaginal NON- US Ordered. EDMS 22:54 DUPLEX SCAN LIMITED (DOPPLER) Ordered. EDMS 23:06 Complete Blood Count Reviewed. ef1 23:06 Hcg, Serum Quantitative Reviewed. ef1 23:31 Set up pelvic ordered. ef1 08/02 08:30 T-Sheet-- Draft Copy was scanned into [email or web address] ([email or web address]) and attached to record. gb Administered Medications: 07/31 22:34 Drug: NS 0.9% 1000 ml [sodium chloride 0.9 % intravenous solution] Route: IV; Rate: kas2 bolus; Site: left antecubital; 08/01 00:51 Follow up: IV Intake: 1000ml kas2 Signatures: Dispatcher [employer] EDMS Belinda Rodriguez, Antonio Reg Viviana Ayala, PA-C PA-C ef1 Ning Wright,RN RN Fely Rodrigues LPN LPN ka4 Beck, Gabriela gjb Smith, Kim RN kas2 The chart was reviewed and I authenticate all verbal orders and agree with the evaluation and treatment provided.Corrections: (The following items were deleted from the chart) 07/31 22:53 21:57 1ST TRIMESTER US+US ordered. EDIL EDMS Attachments: 22:53 [facility] Payment Agreement [facility] 08/02 08:30 T-Sheet-- Draft Copy gb Chart Complete MTDD
--- NOTE | 2016-08-03 01:56 | EDDOCDS ---
Nurse's Notes [facility] Name: Mellissa Zavala Age: 20 yrs Sex: Female : 1995 Arrival Date: 07/31/2016 Time: 21:00 Bed I1 / M1 Private MD: EVELIN Su Diagnosis: Spontaneous -Complete;Other ovarian cysts-Left Presentation: 07/31 21:05 Presenting complaint: Patient states: pt states she was seen here yesterday for vaginal ead bleeding, states she is 4 weeks . Was told by her doctor if began passing clots to return to ER. Risk factors: The patient reports no loss of conciousness prior to arrival. This patient has not had a hysterectomy. This patient has not begun menopause. Adult Sepsis Screening: The patient does not have new or worsening altered mentation. Patient's respiratory rate is less than 22. Systolic blood pressure is greater than 100. Patient has a qSOFA score of 0- Negative Sepsis Screen. Suicide/Homicide risk assessment- the patient denies having any suicidal and/or homicidal ideations and does not present with any other emotional, behavioral or mental health complaints. Status: The patient is a dependent. Transition of care: patient was not received from another setting of care. 21:05 Acuity: ARON Level 3 ead 21:05 Method Of Arrival: Walkin/Carried/Asstd ead Triage Assessment: 21:08 General: Appears in no apparent distress, Behavior is appropriate for age, cooperative. ead Pain: Location: back and abdomen Pain currently is 6 out of 10 on a pain scale. HIV screening NA for this visit Offered previously. Neurological: No deficits noted. Respiratory: Airway is patent Respiratory effort is even, unlabored. : Reports vaginal bleeding that is with clots heavy flow. Derm: Skin is pink, warm & dry. 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 metronidazole vaginal gel 0.75 % twice a day - PMHx: none; - PSHx: none; - Social history: Smoking status: Patient states was never smoker of tobacco. No barriers to communication noted, The patient speaks fluent Serbian, Speaks appropriately for age. - Family history: Not pertinent. - : The pt / caregiver states he / she is not on anticoagulants. Home medication list is obtained from the patient. - Exposure Risk Screening:: None identified. Screenin:12 Screening information is obtained from the patient. Screening information is obtained ka4 from the patient. Fall risk: No risks identified. Assistance ADL's: requires no assistance with activities of daily living. Abuse/DV Screen: The patient / caregiver reports he/she is: not in a situation that causes fear, pain or injury. Nutritional screening: No deficits noted. Advance Directives: There is no active DNR order. home support is adequate. Assessment: 22:11 General: Appears in no apparent distress, comfortable, well developed, well nourished, ka4 well groomed, Behavior is appropriate for age, cooperative, pleasant. Pain: Pain currently is 5 out of 10 on a pain scale. Neurological: Level of Consciousness is awake, alert, obeys commands, Oriented to person, place, time, Moves all extremities. Gait is steady, Speech is normal, Facial symmetry appears normal, Facial symmetry: tongue is midline. Respiratory: Airway is patent Respiratory effort is even, unlabored, Respiratory pattern is regular, symmetrical. GI: Abdomen is flat, non- distended. Derm: Skin is intact, is healthy with good turgor, Skin is pink, warm & dry. 22:40 General: Patient gone to US via wheelchair with tech.. kas2 23:00 General: Patient back from US via wheelchair. Resettled in bed. No apparent distress at [facility] this time. Call becerril within reach. Will continue to monitor.. 23:30 General: Viviana Jarquin PA in to do pelvic exam with tech in the room.. kas2 23:46 General:. kas2 08/01 00:15 General: Patient laying in bed with at bedside. Denies pain or discomfort at [facility] this time. No apparent distress noted. Appears comfortable. Call becerril within reach. Will continue to monitor.. Vital Signs: 07/31 21:02 BP 156 / 98; Pulse 83; Resp 16; Temp 98.3; Pulse Ox 99% ; Weight 72.57 kg; Height 5 ft. cmb 5 in. (165.10 cm); Pain /10; 08/01 00:47 BP 141 / 82; Pulse 67; Resp 18; Temp 99(O); Pulse Ox 96% on R/A; Pain 0/10; ka4 07/31 21:02 Body Mass Index 26.63 (72.57 kg, 165.10 cm) cmb Vitals: 07/31 21: Log In Time: July 31, 2016 at 21:00. cmb ED Course: 21:01 Patient visited by Lela Porras. cmb 21:01 Patient moved to Waiting cmb 21:02 [place] [facility] [place] Phys[place]. cmb 21:03 Patient moved to Pre RCE cmb 21:07 Triage Initiated ead 21:45 Patient moved to Triage 1 ttb 21:47 [facility] ef1 21:47 Lamont Morgan DO is Attending Physician. ef1 21:53 Patient visited by Viviana Jarquin PA-C. ef1 21:57 Patient moved to I1 / M1 ead 22:07 Patient visited by Myriam Buenrostro RN. kas2 22:12 The patient / caregiver is instructed regarding the plan of care and ED course. ka4 22:12 Inserted saline lock: 20 gauge in left antecubital area and blood collected. The ka4 patient tolerated the procedure well. No procedures done that require assistance. 22:13 Patient visited by Fely Cox LPN. ka4 22:13 Complete Blood Count Sent. ka4 22:13 Hcg, Serum Quantitative Sent. ka4 22:34 Patient visited by Myriam Buenrostro RN. kas2 22:53 [facility] Payment Agreement was scanned into [employer] and attached to record. gjb 22:53 Patient moved to Ultrasound br3 23:06 Patient visited by Myriam Buenrostro RN. kas2 23:25 Patient moved to I1 / M1 br3 23:27 Patient visited by Viviana Jarquin PA-C. ef1 23:47 Patient visited by Myriam Buenrostro RN. kas2 08/01 00:21 Patient visited by Myriam Buenrostro RN. kas2 00:46 Patient visited by Viviana Jarquin PA-C. ef1 00:46 Chidi Barahona OB is Referral Physician. ef1 00:49 Discontinued IV bleeding controlled, pressure dressing applied, No redness/swelling at kas2 site. 00:50 Patient visited by Myriam Buenrostro RN. kas2 00:56 Patient visited by Fely Cox LPN. ka4 01:33 US PELVIC NON-OB COMPLETE Returned. EDMS 08/02 08:30 T-Sheet-- Draft Copy was scanned into [employer] and attached to record. gb Administered Medications: 07/31 22:34 Drug: NS 0.9% 1000 ml [sodium chloride 0.9 % intravenous solution] Route: IV; Rate: kas2 bolus; Site: left antecubital; 08/01 00:51 Follow up: IV Intake: 1000ml kas2 Intake: 00:51 IV: 1000.00ml; Total: 1000.00ml. kas2 Order Results: Lab Order: Complete Blood Count; SPEC'M 07/31/16 22:06 Test: WHITE BLOOD COUNT; Value: 9.1; Range: 4.0-10.0; Units: K/mm3; Status: F Test: RED BLOOD COUNT; Value: 4.73; Range: 4.00-5.40; Units: M/mm3; Status: F Test: HEMOGLOBIN; Value: 13.8; Range: 12.0-16.0; Units: g/dl; Status: F Test: HEMATOCRIT; Value: 40.4; Range: 36.0-47.0; Units: %; Status: F Test: MEAN CORPUSCULAR VOLUME; Value: 85.3; Range: 80.0-96.0; Units: fl; Status: F Test: MEAN CORPUSCULAR HEMOGLOBIN; Value: 29.2; Range: 27.0-33.0; Units: pg; Status: F Test: MEAN CORPUSCULAR HGB CONC; Value: 34.2; Range: 32.0-36.5; Units: g/dl; Status: F Test: RED CELL DISTRIBUTION WIDTH; Value: 13.3; Range: 11.5-14.5; Units: %; Status: F Test: PLATELET COUNT, AUTOMATED; Value: 259; Range: 150-450; Units: k/mm3; Status: F Lab Order: Hcg, Serum Quantitative; SPEC'M 07/31/16 22:06 Test: HCG, SERUM QUANTITATIVE; Value: 3; Units: MIU/ML; Status: F Test Note: ; GESTATIONAL AGE APPROXIMATE HCG RANGE (MIU/ML) 0.2-1 WEEK 5-50 1-2 WEEKS 50-500 2-3 WEEKS 100-5,000 3-4 WEEKS 500-10,000 4-5 WEEKS 1,000-50,000 5-6 WEEKS 10,000-100,000 6-8 WEEKS 15,000-200,000 2-3 MONTHS 10,000-100,000 NON FEMALES LESS THAN 3.0 Patient samples may contain human heterophilic antibodies that could react with immunoassays to give falsely elevated or depressed results. This assay has been designed to minimize interference from heterophilic antibodies. Elevated hCG levels have also been associated with trophoblastic disease and nontrophoblastic neoplasms. The possibility of having these diseases should be considered before a diagnosis of is made. This test is not intended for use as a surrogate marker for aiding in the diagnosis or monitoring the treatment of cancer patients. Siemens Adyuka methodology. Radiology Order: US PELVIC NON-OB COMPLETE Test: US PELVIC NON-OB COMPLETE REASON FOR EXAMINATION: Bleeding; ; CLINICAL HISTORY: Pelvic pain.; TECHNIQUE: Realtime sonographic images were obtained in multiple projections via TA approach.; COMMENTS:; The uterus is anteverted measuring 7.4x4.3x5.5 cm. The endometrial echo pattern is within normal; limits measuring 5.2 mm.; There is small amount of free fluid within the pelvic cul-de-sac.; The right ovary measures 1.7x1.4x1.4 cm and the left ovary measures 3.4x1.9x3.2 cm with a; 1.1x0.9x1.1 cm resolving cyst . Both ovaries are free of solid or cystic mass.; There is no evidence for abnormal vascularity.; IMPRESSION:; No intrauterine .; Normal endometrium.; Thank you for your kind referral of this patient.; ; ; Outcome: 07/31 22:12 Property :Personal belongings accompany Pt. ka4 08/01 00:46 Discharge ordered by Provider. ef1 00:48 Discharge Assessment: Patient awake, alert and oriented x 3. No cognitive and/or ka4 functional deficits noted. Patient verbalized understanding of disposition instructions. patient administered narcotics - no. The following High Risk Discharge criteria are identified: None. Discharged to home ambulatory. Condition: good Condition: stable. Ultrasound Study completed. 00:55 Discharge instructions given to patient, significant other, Instructed on discharge ka4 instructions, follow up and referral plans. Demonstrated understanding of instructions, Pt was receptive of discharge instructions/ teaching. 00:56 Patient left the ED. ka4 Signatures: Dispatcher [employer] EDMS Belinda Rodriguez, Antonio Reg gb Viviana Jarquin, PA-C PA-C ef1 Sharee Martin br3 Lela Porras Teresa, RN RN Ning Oliver,RN RN Fely Rodrigues LPN LPN ka4 Jeanine Hammond Kim,RN RN kas2 Chart Complete MTDD
--- NOTE | 2016-08-03 01:56 | EDDOCDS ---
Physician Documentation [facility] Name: Mellissa Zavala Age: 20 yrs Sex: Female : 1995 Arrival Date: 07/31/2016 Time: 21:00 Bed I1 / M1 Private MD: [place] [facility] [place]: 08/01/16 00:46 Discharged to Home/Self Care. Impression: Spontaneous - Complete, Other ovarian cysts - Left. - Condition is Stable. - Discharge Instructions: Ovarian Cyst, [id number], Miscarriage, [id number]. - Medication Reconciliation, Local Pharmacy Hours form. - Follow up: [facility] [place]; When: 1 - 2 days; Reason: Further diagnostic work-up, Recheck today's complaints, Continuance of care. Follow up: Emergency Department; Reason: Worsening of conditions. - Problem is new. - Symptoms have improved. Historical: - Allergies: Bactrim (Rash); - Home Meds: 1. metronidazole vaginal gel 0.75 % twice a day - PMHx: none; - PSHx: none; - Social history: Smoking status: Patient states was never smoker of tobacco. No barriers to communication noted, The patient speaks fluent Namibian, Speaks appropriately for age. - Family history: Not pertinent. - : The pt / caregiver states he / she is not on anticoagulants. Home medication list is obtained from the patient. - Exposure Risk Screening:: None identified. 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 5 in. (165.10 cm); Pain 5/10; 08/01 00:47 BP 141 / 82; Pulse 67; Resp 18; Temp 99(O); Pulse Ox 96% on R/A; Pain 0/10; ka4 07/31 21:02 Body Mass Index 26.63 (72.57 kg, 165.10 cm) cmb MDM: 07/31 21:56 IV Saline Lock ordered. ef1 21:56 Undress patient appropriately for examination ordered. ef1 21:57 Complete Blood Count Ordered. EDMS 21:57 Hcg, Serum Quantitative Ordered. EDMS 22:00 NS 0.9% 1000 ml IV at bolus once ordered. ef1 22:30 Financial registration complete. gjb 22:53 [facility] Payment Agreement was scanned into [employer] and attached to record. gjb 22:53 US PELVIC NON-OB COMPLETE Ordered. EDMS 22:54 Transvaginal NON- US Ordered. EDMS 22:54 DUPLEX SCAN LIMITED (DOPPLER) Ordered. EDMS 23:06 Complete Blood Count Reviewed. ef1 23:06 Hcg, Serum Quantitative Reviewed. ef1 23:31 Set up pelvic ordered. ef1 08/02 08:30 T-Sheet-- Draft Copy was scanned into [employer] and attached to record. gb Administered Medications: 07/31 22:34 Drug: NS 0.9% 1000 ml [sodium chloride 0.9 % intravenous solution] Route: IV; Rate: kas2 bolus; Site: left antecubital; 08/01 00:51 Follow up: IV Intake: 1000ml kas2 Signatures: Dispatcher [employer] EDMS Belinda Rodriguez, Antonio Reg Viviana Ayala, PA-C PA-C ef1 Ning Wright,RN RN Fely Rodrigues LPN LPN ka4 Beck, Gabriela gjb Smith, Kim RN kas2 The chart was reviewed and I authenticate all verbal orders and agree with the evaluation and treatment provided.Corrections: (The following items were deleted from the chart) 07/31 22:53 21:57 1ST TRIMESTER US+US ordered. EDDC EDMS Attachments: 22:53 [facility] Payment Agreement [facility] 08/02 08:30 T-Sheet-- Draft Copy gb Chart Complete MTDD
== END 2016-08-01 00:56 | disposition home or self-care (01) ==
LOC: M ED 21:00
DX: O03.9 Complete or unspecified spontaneous abortion without complication (principal); N83.202 Unspecified ovarian cyst, left side; Z79.2 Long term (current) use of antibiotics; Z88.1 Allergy status to other antibiotic agents; Z3A.01 Less than 8 weeks gestation of pregnancy